=== PATIENT | female | born 1965 | race Caucasian/White ===

== ENCOUNTER 2024-07-09 06:26 | Day surgery (SDC) | payer OTHER, SELFPAY ==
[2024-07-09] VITALS (7 sets, daily range): BP systolic 113–141; BP diastolic 64–88; BMI 19.6
[2024-07-09] MEDS: NORMOSOL-R/PLASMALYTE-A 1000 IV (14:00)
[2024-07-09] MEDS: CELEBREX 200 MG PO (14:14)
[2024-07-09] MEDS: TYLENOL 1000 MG PO (14:14)
[2024-07-09] MEDS: DEMEROL 12.5 MG IV (17:30)
[2024-07-09] MEDS: DILAUDID 0.25 MG IV (17:48)
== END 2024-07-09 19:12 | disposition home or self-care (01) ==
LOC: SDS 06:26
PROVIDERS: ATTENDING PHYSICIAN Orthopaedic Surgery Hand Surgery; FAMILY PHYSICIAN Family Medicine
DX: M24.521 Contracture, right elbow (principal); T84.84XA Pain due to internal orthopedic prosthetic devices, implants and grafts, initial encounter; Y83.1 Surgical operation with implant of artificial internal device as the cause of abnormal reaction of the patient, or of later complication, without mention of misadventure at the time of the procedure
CPT/HCPCS: 24102; 20680